=== PATIENT | female | born 1990 | race Hispanic/Latino ===

== ENCOUNTER 2017-07-03 07:19 | Emergency (ER) | payer SELFPAY | END 2017-07-03 07:35 | disposition home or self-care (01) | LOC: EDH 07:19 | DX: H00.022 Hordeolum internum right lower eyelid (principal) ==

== ENCOUNTER 2017-10-02 19:02 | Emergency (ER) | payer OTHER ==
[2017-10-02] MEDS ORDERED: SODIUM CHLORIDE 0.9% 1000ML 1,000 ML IV ONE (19:32)
[2017-10-02] MEDS ORDERED: ASPIRIN 325 MG TABLET ONE (19:32)
[2017-10-02] MEDS ORDERED: LORAZEPAM 2 MG/ML 1 ML VIAL ONE (19:33)
[2017-10-02 20:04] LABS: BASOPHILS % (AUTO) 0.3 % (0.0-5.0); EOSINOPHILS % (AUTO) 1.1 % (0.0-8.0); HEMATOCRIT 33.6 % (36-48); LYMPHOCYTES % (AUTO) 22.4 % (21.0-51.0); MEAN CORPUSCULAR HEMOGLOBIN 27.3 pg (27.0-33.0); MEAN CORPUSCULAR HGB CONC 33.8 g/dL (32.0-36.0); MEAN CORPUSCULAR VOLUME 80.8 fL (79-99); MONOCYTES % (AUTO) 6.8 % (3.0-13.0); NEUTROPHILS % (AUTO) 69.4 % (40.0-77.0); PLATELET COUNT (AUTO) 372 K/uL (130-400); RED BLOOD CELL COUNT(AUTO) 4.16 MIL/uL (4.00-5.50); WHITE BLOOD COUNT (AUTO) 10.4 K/uL (4.8-10.8)
[2017-10-02 20:11] LABS: INR 0.94 (0.85-1.15); PARTIAL THROMBOPLASTIN TIME 30.7 SEC (26.3-35.5); PROTHROMBIN TIME 9.9 SEC (9.6-11.6)
[2017-10-02 20:14] LABS: CREATININE 0.9 mg/dL (0.5-1.5); POTASSIUM 3.8 mmol/L (3.5-5.1)
[2017-10-02 20:19] LABS: ALBUMIN 3.6 g/dL (3.5-5.0); BILIRUBIN,TOTAL 0.3 mg/dL (0.2-1.0); TOTAL PROTEIN, SERUM 8.1 g/dL (6.0-8.3)
== END 2017-10-02 21:04 | disposition home or self-care (01) ==
LOC: EDH 19:02
DX: R07.9 Chest pain, unspecified (principal)
CPT/HCPCS: 36415; 71045; 80053; 82550; 84484; 85025; 85378; 85610; 85730; 93005; 94761; 96374; 99285; J2060; J7030

== ENCOUNTER 2018-01-28 22:00 | Emergency (ER) | payer OTHER ==
[2018-01-28 23:09] LABS: APPEARANCE,URINE Cloudy (CLEAR); BILIRUBIN,URINE Negative (NEGATIVE); COLOR,URINE Yellow (YELLOW); GLUCOSE, URINE (UA) Negative (NEGATIVE); KETONES,URINE Negative (NEGATIVE); LEUKOCYTE ESTERASE ,URINE Small (NEGATIVE); NITRATE,URINE Negative (NEGATIVE); OCCULT BLOOD,URINE Negative (NEGATIVE); PROTEIN,URINE Negative (NEGATIVE); UROBILINOGEN,URINE 0.2 mg/dL (0.2-1.0)
[2018-01-28 23:10] LABS: HCG,QUAL RESULT NEGATIVE (NEGATIVE)
[2018-01-28 23:15] LABS: AMORPHOUS SEDIMENT,UR Few /LPF (None Seen); BACTERIA,URINE Rare /HPF (None Seen); MUCUS,URINE Moderate LPF (None Seen); RBC,URINE 0-1 /HPF (0-1); SQUAMOUS EPITHELIAL CELL,UR Few /HPF (0-2); WBC,URINE 0-1 /HPF (0-1)
[2018-01-28 23:18] LABS: AMPHET/METH SCREEN,URINE NEGATIVE (NEGATIVE); BARBITURATE SCREEN, URINE NEGATIVE (NEGATIVE); BENZODIAZEPINES SCREEN,URINE NEGATIVE (NEGATIVE); CANNABINOID SCREEN,URINE NEGATIVE (NEGATIVE); COCAINE SCREEN,URINE NEGATIVE (NEGATIVE); OPIATE SCREEN,URINE NEGATIVE (NEGATIVE); PHENCYCLIDINE SCREEN,URINE NEGATIVE (NEGATIVE)
[2018-01-28] MEDS ORDERED: LORAZEPAM 2 MG/ML 1 ML VIAL ONE (23:31)
[2018-01-28 23:35] LABS: BASOPHILS % (AUTO) 0.3 % (0.0-5.0); EOSINOPHILS % (AUTO) 0.8 % (0.0-8.0); HEMATOCRIT 37.9 % (36-48); LYMPHOCYTES % (AUTO) 22.2 % (21.0-51.0); MEAN CORPUSCULAR HEMOGLOBIN 27.5 pg (27.0-33.0); MEAN CORPUSCULAR HGB CONC 33.7 g/dL (32.0-36.0); MEAN CORPUSCULAR VOLUME 81.7 fL (79-99); MONOCYTES % (AUTO) 4.4 % (3.0-13.0); NEUTROPHILS % (AUTO) 72.3 % (40.0-77.0); PLATELET COUNT (AUTO) 360 K/uL (130-400); RED BLOOD CELL COUNT(AUTO) 4.64 MIL/uL (4.00-5.50); RED CELL DISTRIBUTION WIDTH 14.4 % (11.0-15.5); WHITE BLOOD COUNT (AUTO) 9.1 K/uL (4.8-10.8)
[2018-01-28 23:52] LABS: ALBUMIN 3.7 g/dL (3.5-5.0); BILIRUBIN,TOTAL 0.3 mg/dL (0.2-1.0); CREATININE 0.8 mg/dL (0.5-1.5); TOTAL PROTEIN, SERUM 8.1 g/dL (6.0-8.3)
[2018-01-29 00:12] LABS: POTASSIUM 4.2 mmol/L (3.5-5.1)
== END 2018-01-29 01:13 | disposition home or self-care (01) ==
LOC: EDH 22:00
DX: R00.2 Palpitations (principal); Z98.51 Tubal ligation status; Z98.890 Other specified postprocedural states
CPT/HCPCS: 36415; 80053; 80305; 81001; 81025; 82550; 84484; 85025; 93005; 96374; 99285; J2060

== ENCOUNTER 2018-07-27 07:21 | Emergency (ER) | payer OTHER ==
[2018-07-27 08:03] LABS: HCG,QUAL RESULT NEGATIVE (NEGATIVE)
[2018-07-27 08:04] LABS: APPEARANCE,URINE Clear (CLEAR); BILIRUBIN,URINE Negative (NEGATIVE); COLOR,URINE Yellow (YELLOW); GLUCOSE, URINE (UA) Negative (NEGATIVE); KETONES,URINE Negative (NEGATIVE); LEUKOCYTE ESTERASE ,URINE Negative (NEGATIVE); NITRATE,URINE Negative (NEGATIVE); OCCULT BLOOD,URINE Large (NEGATIVE); PROTEIN,URINE Negative (NEGATIVE)
[2018-07-27 08:09] LABS: AMPHET/METH SCREEN,URINE NEGATIVE (NEGATIVE); BARBITURATE SCREEN, URINE NEGATIVE (NEGATIVE); BENZODIAZEPINES SCREEN,URINE NEGATIVE (NEGATIVE); CANNABINOID SCREEN,URINE NEGATIVE (NEGATIVE); COCAINE SCREEN,URINE NEGATIVE (NEGATIVE); OPIATE SCREEN,URINE NEGATIVE (NEGATIVE); PHENCYCLIDINE SCREEN,URINE NEGATIVE (NEGATIVE)
[2018-07-27] MEDS ORDERED: ONDANSETRON HCL 4 MG/2 ML VIAL ONE (08:18)
[2018-07-27] MEDS ORDERED: KETOROLAC TROMETHAMINE 30MG/ML ONE (08:18)
[2018-07-27 08:19] LABS: BASOPHILS % (AUTO) 0.1 % (0.0-5.0); CREATININE 0.7 mg/dL (0.5-1.5); LYMPHOCYTES % (AUTO) 21.7 % (21.0-51.0); MEAN CORPUSCULAR HEMOGLOBIN 26.6 pg (27.0-33.0); MEAN CORPUSCULAR HGB CONC 32.9 g/dL (32.0-36.0); NEUTROPHILS % (AUTO) 72.2 % (40.0-77.0); PLATELET COUNT (AUTO) 337 K/uL (130-400); POTASSIUM 4.1 mmol/L (3.5-5.1); RED BLOOD CELL COUNT(AUTO) 4.44 MIL/uL (4.00-5.50); RED CELL DISTRIBUTION WIDTH 14.5 % (11.0-15.5); WHITE BLOOD COUNT (AUTO) 7.9 K/uL (4.8-10.8)
[2018-07-27 08:25] LABS: BACTERIA,URINE Moderate /HPF (None Seen); RBC,URINE 0-1 /HPF (0-1); WBC,URINE 0-1 /HPF (0-1)
[2018-07-27 11:00] LABS: ALANINE AMINOTRANSFERASE 30 U/L (12-78); ALBUMIN 3.5 g/dL (3.5-5.0); ASPARTATE AMINOTRANSFERASE 24 U/L (10-37); BILIRUBIN,DIRECT < 0.1 mg/dL (0.0-0.3); BILIRUBIN,TOTAL 0.2 mg/dL (0.2-1.0); LIPASE 140 U/L (114-286); TOTAL PROTEIN, SERUM 7.7 g/dL (6.0-8.3)
== END 2018-07-27 14:02 | disposition home or self-care (01) ==
LOC: EDH 07:21
DX: K80.50 Calculus of bile duct without cholangitis or cholecystitis without obstruction (principal); F41.9 Anxiety disorder, unspecified; Z98.51 Tubal ligation status; Z98.890 Other specified postprocedural states
CPT/HCPCS: 36415; 74176; 76705; 80048; 80076; 80305; 81001; 81025; 83690; 85025; 96374; 96375; 99284; J1885; J2405

== ENCOUNTER 2018-09-08 01:33 | Emergency (ER) | payer OTHER ==
[2018-09-08 02:07] LABS: BASOPHILS % (AUTO) 0.2 % (0.0-5.0); EOSINOPHILS % (AUTO) 1.2 % (0.0-8.0); HEMATOCRIT 34.6 % (36-48); LYMPHOCYTES % (AUTO) 18.3 % (21.0-51.0); MEAN CORPUSCULAR HEMOGLOBIN 27.7 pg (27.0-33.0); MEAN CORPUSCULAR HGB CONC 34.3 g/dL (32.0-36.0); MEAN CORPUSCULAR VOLUME 80.9 fL (79-99); MONOCYTES % (AUTO) 5.1 % (3.0-13.0); NEUTROPHILS % (AUTO) 75.2 % (40.0-77.0); PLATELET COUNT (AUTO) 282 K/uL (130-400); RED BLOOD CELL COUNT(AUTO) 4.28 MIL/uL (4.00-5.50); RED CELL DISTRIBUTION WIDTH 14.4 % (11.0-15.5); WHITE BLOOD COUNT (AUTO) 10.2 K/uL (4.8-10.8)
[2018-09-08 02:10] LABS: APPEARANCE,URINE Cloudy (CLEAR); BILIRUBIN,URINE Negative (NEGATIVE); COLOR,URINE Yellow (YELLOW); GLUCOSE, URINE (UA) Negative (NEGATIVE); KETONES,URINE Negative (NEGATIVE); LEUKOCYTE ESTERASE ,URINE Large (NEGATIVE); NITRATE,URINE Negative (NEGATIVE); OCCULT BLOOD,URINE Negative (NEGATIVE); PH,URINE 6.5 (5.0-8.0); PROTEIN,URINE Negative (NEGATIVE)
[2018-09-08 02:15] LABS: CREATININE 0.7 mg/dL (0.5-1.5); HCG,QUAL RESULT NEGATIVE (NEGATIVE); POTASSIUM 3.7 mmol/L (3.5-5.1)
[2018-09-08 02:19] LABS: ALBUMIN 3.4 g/dL (3.5-5.0); BILIRUBIN,TOTAL 0.2 mg/dL (0.2-1.0); TOTAL PROTEIN, SERUM 7.8 g/dL (6.0-8.3)
[2018-09-08 02:25] LABS: BACTERIA,URINE Moderate /HPF (None Seen); RBC,URINE 0-1 /HPF (0-1)
[2018-09-08 02:26] LABS: CALCIUM OXALATE CRYSTALS,UR Moderate /LPF (None Seen)
[2018-09-08] MEDS ORDERED: IBUPROFEN 600 MG TABLET ONE (02:38)
[2018-09-08] MEDS ORDERED: PHENAZOPYRIDINE HCL 200 MG TABLET ONE (02:39)
[2018-09-08] MEDS ORDERED: LEVOFLOXACIN 500 MG TABLET ONE (02:39)
== END 2018-09-08 03:00 | disposition home or self-care (01) ==
LOC: EDH 01:33
DX: N39.0 Urinary tract infection, site not specified (principal); G43.909 Migraine, unspecified, not intractable, without status migrainosus; F41.9 Anxiety disorder, unspecified; Z98.51 Tubal ligation status; Z98.890 Other specified postprocedural states
CPT/HCPCS: 36415; 80053; 81001; 81025; 82150; 83690; 85025; 87088

== ENCOUNTER 2018-11-14 13:44 | Emergency (ER) | payer BC | END 2018-11-14 14:12 | disposition home or self-care (01) | LOC: EDH 13:44 | DX: J02.9 Acute pharyngitis, unspecified (principal); G43.909 Migraine, unspecified, not intractable, without status migrainosus; F41.9 Anxiety disorder, unspecified; Z98.890 Other specified postprocedural states; Z98.51 Tubal ligation status ==

== ENCOUNTER 2020-05-26 08:31 | Emergency (ER) | payer BC, MEDICAID ==
[2020-05-26 09:07] LABS: BASOPHILS % (AUTO) 0.2 % (0.0-5.0); EOSINOPHILS % (AUTO) 0.8 % (0.0-8.0); HEMATOCRIT 38.3 % (36-48); LYMPHOCYTES % (AUTO) 20.2 % (21.0-51.0); MEAN CORPUSCULAR HEMOGLOBIN 27.6 pg (27.0-33.0); MEAN CORPUSCULAR HGB CONC 33.2 g/dL (32.0-36.0); MEAN CORPUSCULAR VOLUME 83.3 fL (79-99); MONOCYTES % (AUTO) 4.2 % (3.0-13.0); NEUTROPHILS % (AUTO) 74.2 % (40.0-77.0); PLATELET COUNT (AUTO) 356 K/uL (130-400); WHITE BLOOD COUNT (AUTO) 9.3 K/uL (4.8-10.8)
[2020-05-26] MEDS ORDERED: ONDANSETRON HCL 4 MG/2 ML VIAL ONE (09:16)
[2020-05-26] MEDS ORDERED: KETOROLAC TROMETHAMINE 15MG/ML ONE (09:16)
[2020-05-26 09:32] LABS: BILIRUBIN,URINE Negative (NEGATIVE); COLOR,URINE Yellow (YELLOW); GLUCOSE, URINE (UA) Negative (NEGATIVE); KETONES,URINE Negative (NEGATIVE); LEUKOCYTE ESTERASE ,URINE Small (NEGATIVE); NITRATE,URINE Negative (NEGATIVE); OCCULT BLOOD,URINE Negative (NEGATIVE); PH,URINE 7.5 (5.0-8.0); PROTEIN,URINE Negative (NEGATIVE)
[2020-05-26 09:35] LABS: APPEARANCE,URINE Hazy (CLEAR)
[2020-05-26 09:39] LABS: CREATININE 0.8 mg/dL (0.5-1.5); POTASSIUM 4.3 mmol/L (3.5-5.1)
[2020-05-26 09:40] LABS: BACTERIA,URINE Rare /HPF (None Seen); RBC,URINE 0-1 /HPF (0-1); SQUAMOUS EPITHELIAL CELL,UR Rare /HPF (0-2); WBC,URINE 0-1 /HPF (0-1)
[2020-05-26 09:43] LABS: ALBUMIN 3.8 g/dL (3.5-5.0); BILIRUBIN,TOTAL 0.4 mg/dL (0.2-1.0); TOTAL PROTEIN, SERUM 8.7 g/dL (6.0-8.3)
[2020-05-26] MEDS ORDERED: IOHEXOL-350 75 ML VIAL IV ONE (10:10)
[2020-05-26] MEDS ORDERED: PROCHLORPERAZINE EDISYLATE 10 MG/2 ML VIAL ONE (10:24)
== END 2020-05-26 11:45 | disposition home or self-care (01) ==
LOC: EDH 08:31
DX: N83.299 Other ovarian cyst, unspecified side (principal); F41.9 Anxiety disorder, unspecified; G43.909 Migraine, unspecified, not intractable, without status migrainosus; Z98.890 Other specified postprocedural states
CPT/HCPCS: 36415; 74177; 80053; 81001; 83690; 85025; 96374; 96375; 99285; J0780; J1885; J2405; Q9967

== ENCOUNTER 2022-01-18 12:32 | Emergency (ER) | payer MEDICAID ==
[~2022-01-18] VITALS: Ht 154.9 cm; Wt 88.5 kg
[2022-01-18] MEDS ORDERED: KETOROLAC 30MG VIAL (30MG/ML) IVP ONE (13:30)
[2022-01-18] MEDS ORDERED: LACTATED RINGERS 1000ML 1,000 ML IV ONE (13:30)
[2022-01-18] MEDS ORDERED: ONDANSETRON 4MG INJ IVP ONE (13:30)
[2022-01-18 13:32] LABS: BASOPHILS % (AUTO) 0.3 % (0.0-5.0); EOSINOPHILS % (AUTO) 1.4 % (0.0-8.0); HEMATOCRIT 39.8 % (36-48); LYMPHOCYTES % (AUTO) 27.7 % (21.0-51.0); MEAN CORPUSCULAR HEMOGLOBIN 28.4 pg (27.0-33.0); MEAN CORPUSCULAR HGB CONC 33.4 g/dL (32.0-36.0); MEAN CORPUSCULAR VOLUME 84.9 fL (79-99); MONOCYTES % (AUTO) 4.4 % (3.0-13.0); PLATELET COUNT (AUTO) 323 K/uL (130-400); RED BLOOD CELL COUNT(AUTO) 4.69 MIL/uL (4.00-5.50); RED CELL DISTRIBUTION WIDTH 13.2 % (11.0-15.5); WHITE BLOOD COUNT (AUTO) 8.7 K/uL (4.8-10.8)
[2022-01-18 13:45] LABS: CREATININE 0.7 mg/dL (0.5-1.5); POTASSIUM 3.6 mmol/L (3.5-5.1)
[2022-01-18 13:49] LABS: ALBUMIN 3.9 g/dL (3.5-5.0); TOTAL PROTEIN, SERUM 8.8 g/dL (6.0-8.3)
[2022-01-18 15:37] LABS: APPEARANCE,URINE CLOUDY (CLEAR); BILIRUBIN,URINE SMALL (NEGATIVE); COLOR,URINE YELLOW (YELLOW); GLUCOSE, URINE (UA) NEGATIVE (NEGATIVE); KETONES,URINE 15 mg/dL (NEGATIVE); LEUKOCYTE ESTERASE ,URINE NEGATIVE (NEGATIVE); NITRATE,URINE NEGATIVE (NEGATIVE); OCCULT BLOOD,URINE LARGE (NEGATIVE); PROTEIN,URINE TRACE mg/dL (NEGATIVE); UROBILINOGEN,URINE 0.2 mg/dL (0.2-1.0)
[2022-01-18 15:43] LABS: HCG,QUALITATIVE URINE NEGATIVE (NEGATIVE)
[2022-01-18 15:45] LABS: BACTERIA,URINE Few /HPF (None Seen); SQUAMOUS EPITHELIAL CELL,UR Few /HPF (0-2)
[2022-01-18] MEDS ORDERED: IOHEXOL 350 MG/ML 100ML INFUS..BTL IV ONE (15:55)
[2022-01-18] MEDS ORDERED: ONDA4TAB10 PO (17:08)
[2022-01-18] MEDS ORDERED: IBUP-2071 PO (17:08)
[2022-01-18 17:30] VITALS: BP 124/80
== END 2022-01-18 17:35 | disposition home or self-care (01) ==
LOC: EDH 12:32
DX: N83.201 Unspecified ovarian cyst, right side (principal); R11.2 Nausea with vomiting, unspecified; Z79.1 Long term (current) use of non-steroidal anti-inflammatories (NSAID)
CPT/HCPCS: 99285; 74177; 96374; 96361; 96375; 80053; 85025; 81001; 81025; 36415; J7120; J2405; J1885; Q9967

== ENCOUNTER 2022-03-16 05:31 | Observation (INO) | payer MEDICAID, OTHER ==
[2022-03-15 12:20] LABS: BASOPHILS % (AUTO) 0.2 % (0.0-5.0); EOSINOPHILS % (AUTO) 1.3 % (0.0-8.0); HEMATOCRIT 39.5 % (36-48); LYMPHOCYTES % (AUTO) 22.1 % (21.0-51.0); MEAN CORPUSCULAR HEMOGLOBIN 28.4 pg (27.0-33.0); MEAN CORPUSCULAR HGB CONC 32.9 g/dL (32.0-36.0); MEAN CORPUSCULAR VOLUME 86.2 fL (79-99); MONOCYTES % (AUTO) 3.8 % (3.0-13.0); NEUTROPHILS % (AUTO) 72.4 % (40.0-77.0); PLATELET COUNT (AUTO) 303 K/uL (130-400); RED BLOOD CELL COUNT(AUTO) 4.58 MIL/uL (4.00-5.50); RED CELL DISTRIBUTION WIDTH 12.6 % (11.0-15.5); WHITE BLOOD COUNT (AUTO) 8.2 K/uL (4.8-10.8)
[2022-03-15 12:59] VITALS: BP 123/85
[2022-03-15 13:08] LABS: APPEARANCE,URINE CLEAR (CLEAR); BILIRUBIN,URINE NEGATIVE (NEGATIVE); COLOR,URINE LIGHT-YELLOW (YELLOW); GLUCOSE, URINE (UA) NEGATIVE (NEGATIVE); KETONES,URINE NEGATIVE (NEGATIVE); LEUKOCYTE ESTERASE ,URINE NEGATIVE Leu/uL (NEGATIVE); NITRATE,URINE NEGATIVE (NEGATIVE); OCCULT BLOOD,URINE NEGATIVE (NEGATIVE); PH,URINE 5.5 (5.0-8.0); PROTEIN,URINE NEGATIVE (NEGATIVE); UROBILINOGEN,URINE 0.2 mg/dL (0.2-1.0)
[2022-03-16] VITALS (26 sets, daily range): BP systolic 115–147; BP diastolic 65–95
[~2022-03-16] VITALS: Ht 157.5 cm; Wt 87.5 kg
[~2022-03-16 05:31] MED LIST: CEFAZOLIN SODIUM 1 GM VIAL IVP SCH; IBUP-2071 PO; ONDA4TAB10 PO
[2022-03-16] MEDS ORDERED: LACTATED RINGERS 1000ML 1,000 ML IV ONE (05:59)
[2022-03-16] MEDS ORDERED: LIDOCAINE PF 100MG/5ML (2%) SYRINGE 5ML ONE (07:00)
[2022-03-16] MEDS ORDERED: ONDANSETRON 4MG INJ ONE (07:00)
[2022-03-16] MEDS ORDERED: GLYCOPYRROLATE 1 MG/5 ML SYRINGE ONE (07:00)
[2022-03-16] MEDS ORDERED: PROPOFOL 10 MG/ML 20ML VIAL IV ONE (07:00)
[2022-03-16] MEDS ORDERED: FENTANYL CITRATE PF 50 MCG/1 ML 2ML VIAL ONE (07:00)
[2022-03-16] MEDS ORDERED: NEOSTIGMINE 5MG/5ML SYR IV ONE (07:00)
[2022-03-16] MEDS ORDERED: DEXAMETHASONE SOD PHOSPHATE 10MG/ML 1ML VIAL ONE ×2 (07:00→08:32)
[2022-03-16] MEDS ORDERED: SUCCINYLCHOLINE CHLORIDE 20 MG/ML 10 ML VIAL ONE (07:00)
[2022-03-16] MEDS ORDERED: ROCURONIUM 10MG/1ML SYR 10 MG/ML ML ONE ×2 (07:01→08:37)
[2022-03-16] MEDS ORDERED: MIDAZOLAM HCL 1 MG/ML 2ML VIAL ONE (07:01)
[2022-03-16] MEDS ORDERED: FENTANYL CITRATE PF 50 MCG/1 ML 5ML AMP IV ONE (07:42)
[2022-03-16] MEDS ORDERED: KETOROLAC 30MG VIAL (30MG/ML) ONE (09:11)
[2022-03-16] MEDS ORDERED: MEPERIDINE-PF 25 MG/ML SYG ONE ×2 (09:55→10:04)
[2022-03-16] MEDS ORDERED: ACETAMINOPHEN WITH CODEINE 1 TAB TAB PO PRN (11:30)
[2022-03-16] MEDS ORDERED: ONDANSETRON 4MG INJ IVP PRN (11:30)
[2022-03-16] MEDS ORDERED: SIMETHICONE 80 MG TAB.CHEW PO PRN (11:30)
[2022-03-16] MEDS ORDERED: IBUPROFEN 600 MG TABLET PO PRN (11:30)
[2022-03-16] MEDS ORDERED: MEPERIDINE-PF 75 MG/ML SYG IM PRN (11:30)
[2022-03-16] MEDS ORDERED: PROMETHAZINE HCL 25 MG/ML 1ML AMPULE IM PRN ×2 (11:30)
[2022-03-16] MEDS ORDERED: BISACODYL 10 MG SUPP.RECT RC PRN (11:30)
[2022-03-16] MEDS: DEXTROSE 5 %-0.45 % NACL 1,000 ML IV PRN ×2 (15:28→18:15)
[2022-03-16] MEDS: DOCUSATE SODIUM 100 MG CAP PO PRN (22:54)
[2022-03-17] MEDS: DEXTROSE 5 %-0.45 % NACL 1,000 ML IV PRN (02:59)
[2022-03-17 03:03] VITALS: BP 129/74
[2022-03-17] MEDS ORDERED: IBUPROFEN 800 MG TAB PO PRN (05:30)
[2022-03-17] MEDS ORDERED: ACETAMINOPHEN WITH CODEINE 1 TAB TAB PO PRN (05:30)
[2022-03-17] MEDS ORDERED: HYDROCODONE/ACETAMINOPHEN 5/325 MG TAB PO PRN (05:30)
[2022-03-17 06:06] LABS: HEMATOCRIT 33.7 % (36-48); MEAN CORPUSCULAR HEMOGLOBIN 28.3 pg (27.0-33.0); MEAN CORPUSCULAR HGB CONC 33.2 g/dL (32.0-36.0); MEAN CORPUSCULAR VOLUME 85.1 fL (79-99); RED BLOOD CELL COUNT(AUTO) 3.96 MIL/uL (4.00-5.50); RED CELL DISTRIBUTION WIDTH 12.9 % (11.0-15.5); WHITE BLOOD COUNT (AUTO) 14.8 K/uL (4.8-10.8)
[2022-03-17 07:40] VITALS: BP 115/70
[2022-03-17] MEDS: DOCUSATE SODIUM 100 MG CAP PO PRN (08:57)
[2022-03-17] MEDS ORDERED: ACET-2079 PO (10:48)
[2022-03-17 11:29] VITALS: BP 128/82
== END 2022-03-17 12:25 | disposition home or self-care (01) ==
LOC: DAH 05:31 → DAHIP 05:32 → OBSVTOIN 05:32 → INTOOBSV 05:32 → WSH 10:33
PROVIDERS: ADMIT Obstetrics & Gynecology; ATTEND Obstetrics & Gynecology
DX: R10.2 Pelvic and perineal pain (principal); Z20.822 Contact with and (suspected) exposure to COVID-19; N83.201 Unspecified ovarian cyst, right side; N73.6 Female pelvic peritoneal adhesions (postinfective); N83.202 Unspecified ovarian cyst, left side; G89.29 Other chronic pain; Z90.710 Acquired absence of both cervix and uterus; Z79.899 Other long term (current) drug therapy; Z98.890 Other specified postprocedural states
CPT/HCPCS: 84703; 85025; 86850; 86900; 86901; 87426; 81003; 36415 ×2; 58552; 96372; 85027; A6260; G0378 ×27; G0379; A4663; J7030; A4606; A4344; J7120; J3010 ×2; J0690; J3490 ×3; J1100 ×2; J2710; J0330; J2550; J2250; J2405; J1885; J2175 ×3; C1769 ×2; A4649 ×2; A4215 ×2; A4223; A4222; A4221; A4600; J2001; J2704

== ENCOUNTER 2022-03-19 11:02 | Emergency (ER) | payer MEDICAID ==
[~2022-03-19] VITALS: Ht 157.5 cm; Wt 87.5 kg
[~2022-03-19 11:02] MED LIST changes: +ACET-2079 PO; -CEFAZOLIN SODIUM 1 GM VIAL IVP SCH; -IBUP-2071 PO; -ONDA4TAB10 PO
[2022-03-19] MEDS ORDERED: ORPHENADRINE CITRATE 30 MG/ML ML IM ONE (12:30)
[2022-03-19 13:21] VITALS: BP 122/65
== END 2022-03-19 13:24 | disposition home or self-care (01) ==
LOC: EDH 11:02
DX: M54.30 Sciatica, unspecified side (principal); Z98.890 Other specified postprocedural states
CPT/HCPCS: 99283; 96372; J2360

== ENCOUNTER 2023-04-28 13:09 | Emergency (ER) | payer MEDICAID, OTHER ==
[~2023-04-28] VITALS: Ht 154.9 cm; Wt 86.2 kg
[~2023-04-28 13:09] MED LIST changes: +CYCL-309 PO; +KETO10TA2 PO
[2023-04-28 13:27] VITALS: BP 156/103; PULSE 92; RESP 16
[2023-04-28] MEDS ORDERED: TETRACAINE HCL 0.5% 4 ML OPHTH SOLN ONE (13:52)
[2023-04-28] MEDS ORDERED: FLUORESCEIN SODIUM 1 STRIP STRIP ONE (13:52)
[2023-04-28] MEDS ORDERED: FLUORESCEIN SODIUM 1 STRIP STRIP OP SCH (14:00)
[2023-04-28] MEDS ORDERED: TETRACAINE HCL 0.5% 4 ML OPHTH SOLN OP SCH (14:00)
[2023-04-28] MEDS ORDERED: POLYOS OD (14:32)
== END 2023-04-28 14:48 | disposition home or self-care (01) ==
LOC: EDH 13:09
DX: H10.89 Other conjunctivitis (principal); R60.9 Edema, unspecified; Z79.899 Other long term (current) drug therapy; Z90.710 Acquired absence of both cervix and uterus; Z98.890 Other specified postprocedural states